=== PATIENT | female | born 1935 | race Caucasian/White ===

== ENCOUNTER → 2020-02-15 10:20 | Outpatient (BNVA) | payer MEDICARE, SELFPAY | PROVIDERS: PCP Nurse Practitioner Family; Visit Provider Family Medicine | DX: F03.90 Unspecified dementia, unspecified severity, without behavioral disturbance, psychotic disturbance, mood disturbance, and anxiety (principal); I10 Essential (primary) hypertension; L98.9 Disorder of the skin and subcutaneous tissue, unspecified; E78.5 Hyperlipidemia, unspecified; I48.91 Unspecified atrial fibrillation | CPT/HCPCS: 80053; 80061; 84443; 85025 ==

== ENCOUNTER → 2020-03-14 11:58 | Outpatient (BNVA) | payer MEDICARE, SELFPAY | PROVIDERS: PCP Nurse Practitioner Family; Visit Provider Nurse Practitioner Family | DX: I10 Essential (primary) hypertension (principal); R10.9 Unspecified abdominal pain; R10.32 Left lower quadrant pain | CPT/HCPCS: 80053; 81000; 85025 ==

== ENCOUNTER 2020-03-23 09:01 | Outpatient (CLI) | payer MEDICARE, SELFPAY ==
[2020-03-23] MEDS: iohexol 300 mg/mL 50 mL Btl PO (10:30)
--- NOTE | 2020-03-23 11:00 | CT_ITS ---
WS: [id number] CT ABDOMEN AND PELVIS WITH CONTRAST HISTORY: LLQ pain TECHNIQUE: Imaging performed of the abdomen and pelvis with IV contrast. Single phase imaging of the abdomen. Coronal and sagittal reformats are submitted. All CT scans at [facility] use at least one of these dose optimization techniques: automated exposure control; mA and/or kV adjustment per patient size (includes targeted exams where dose is matched to clinical indication); or iterativ e reconstruction. IV CONTRAST: Visipaque 320; 95 mL IV. Oral contrast: Yes. DLP: 949.91 mGycm COMPARISON: 08/14/2018 Lower thorax: Chronic emphysematous changes and fibrosis. Small bilateral pleural effusions. Pleural effusions were also present on the prior study but increased slightly. Cardiac chambers are enlarged. There is a pericardial effusion which is similar to the prior study. No hiatal hernia. Liver/biliary system: Peripheral 10 mm cyst is stable. There are changes of mild hepatic steatosis. N o bile duct dilatation. Gallbladder: Normal size gallbladder with stones. No adjacent inflammation. Pancreas: Severe atrophy of the pancreas. Spleen: Normal. Adrenal glands: Normal. Right kidney: Cortical atrophy and thinning. No solid mass or obstruction. Left kidney: Cortical atrophy and thinning with no solid mass or obstruction. Aorta: Mild ectasia and atherosclerosis of aorta. Moderate amount of atherosclerosis within the mesen teric arteries. Lymphadenopathy: None. Free fluid: No free fluid in the abdomen or pelvis. GI tract: The appendix is normal. Moderate fecal retention. There are a few diverticula in the sigmoi d colon with tortuosity. No adjacent inflammation. Abdominal wall: Unremarkable abdominal wall. No hernia. Pelvis: Well-distended urinary bladder. Uterus is atrophic and anteverted. Large dense calcification within the myometrium from fibroids. No pelvic mass otherwise. Bones: Increase in lumbar lordosis. No osteoblastic or osteolytic bone disease. CT/CT abdomen pelvis w con* [id number] IMPRESSION: 1. No acute abdominal or pelvic abnormalities are identified. 2. Tortuous colon with constipation and distal diverticulosis. No evidence for acute diverticulitis. 3. Atherosclerosis and ectasia abdominal aorta. 4. Cholelithiasis without acute cholecystitis. 5. Small bilateral pleural effusions, small pericardial effusion and cardiomeg mia. These findings have minimally progressed since 08/14/2018. 6. Bilateral renal atrophy.
[2020-03-23] MEDS: iodixanol 320 mg/mL 100mL Btl IV (11:02)
== END 2020-03-23 09:02 | disposition home or self-care (01) ==
LOC: RADWPI 09:08
PROVIDERS: PCP Nurse Practitioner Family; Visit Provider Nurse Practitioner Family
DX: R10.32 Left lower quadrant pain (principal); K59.00 Constipation, unspecified; K57.90 Diverticulosis of intestine, part unspecified, without perforation or abscess without bleeding; I70.0 Atherosclerosis of aorta; I77.811 Abdominal aortic ectasia; K80.20 Calculus of gallbladder without cholecystitis without obstruction; J90 Pleural effusion, not elsewhere classified; I31.3 Pericardial effusion (noninflammatory); I51.7 Cardiomegaly; N26.1 Atrophy of kidney (terminal)
CPT/HCPCS: 74177; Q9967

== ENCOUNTER → 2020-06-20 10:17 | Outpatient (BNVA) | payer MEDICARE, SELFPAY | PROVIDERS: PCP Nurse Practitioner Family; Visit Provider Nurse Practitioner Family | DX: F03.90 Unspecified dementia, unspecified severity, without behavioral disturbance, psychotic disturbance, mood disturbance, and anxiety (principal); I10 Essential (primary) hypertension; R25.2 Cramp and spasm; L98.9 Disorder of the skin and subcutaneous tissue, unspecified; N39.0 Urinary tract infection, site not specified; E55.9 Vitamin D deficiency, unspecified; G47.00 Insomnia, unspecified | CPT/HCPCS: 80053; 80061; 81000; 81003; 82306; 82607; 83735; 85025; 87077; 87086; 87186 ==